=== PATIENT | female | born 1995 | race African-American/Black ===

== ENCOUNTER → 2019-02-11 | Outpatient (CLI) | payer BC | LOC: SUN.DIA 14:23 | DX: E10.9 Type 1 diabetes mellitus without complications (principal); O24.419 Gestational diabetes mellitus in pregnancy, unspecified control | CPT/HCPCS: G0108 ==

== ENCOUNTER → 2019-02-16 | Outpatient (CLI) | payer BC | LOC: SUN.DIA 08:44 | DX: O24.419 Gestational diabetes mellitus in pregnancy, unspecified control (principal); Z79.4 Long term (current) use of insulin; Z3A.14 14 weeks gestation of pregnancy | CPT/HCPCS: G0108 ==

== ENCOUNTER → 2019-03-01 | Outpatient (CLI) | payer BC | LOC: SUN.DIA 13:28 | DX: E10.9 Type 1 diabetes mellitus without complications (principal); O24.419 Gestational diabetes mellitus in pregnancy, unspecified control; Z79.4 Long term (current) use of insulin; Z3A.17 17 weeks gestation of pregnancy | CPT/HCPCS: G0108 ==

== ENCOUNTER → 2019-03-17 | Outpatient (CLI) | payer BC | LOC: SUN.DIA 08:45 | DX: E10.9 Type 1 diabetes mellitus without complications (principal); O24.419 Gestational diabetes mellitus in pregnancy, unspecified control; Z79.4 Long term (current) use of insulin | CPT/HCPCS: G0108 ==

== ENCOUNTER → 2019-04-19 | Outpatient (CLI) | payer BC | LOC: SUN.DIA 04-13 15:00 | DX: E10.9 Type 1 diabetes mellitus without complications (principal); O24.419 Gestational diabetes mellitus in pregnancy, unspecified control | CPT/HCPCS: G0108 ==

== ENCOUNTER → 2019-05-02 | Outpatient (CLI) | payer BC | LOC: SUN.DIA 09:05 | DX: E10.9 Type 1 diabetes mellitus without complications (principal) | CPT/HCPCS: G0108 ==

== ENCOUNTER → 2019-05-30 | Outpatient (CLI) | payer BC | LOC: DIA.ED 05-23 14:52 → SUN.DIA 05-23 14:53 → DIA.ED 09:30 | DX: E10.9 Type 1 diabetes mellitus without complications (principal); Z79.4 Long term (current) use of insulin | CPT/HCPCS: G0108 ==

== ENCOUNTER → 2019-06-15 | Outpatient (CLI) | payer BC | LOC: DIA.ED 10:54 | DX: E10.9 Type 1 diabetes mellitus without complications (principal); Z79.4 Long term (current) use of insulin | CPT/HCPCS: G0108 ==

== ENCOUNTER → 2019-07-05 | Outpatient (CLI) | payer BC | LOC: DIA.ED 13:21 | DX: E10.9 Type 1 diabetes mellitus without complications (principal); Z79.4 Long term (current) use of insulin | CPT/HCPCS: G0108 ==

== ENCOUNTER 2019-07-28 06:51 | Inpatient (IN) | payer BC ==
[~2019-07-28] VITALS: Ht 172.7 cm; Wt 105.0 kg
[2019-07-28] VITALS (54 sets, daily range): BP systolic 113–190; BP diastolic 63–116; PULSE 61–114; TEMP 97.6–98.6
--- NOTE | 2019-07-28 07:00 | NUR ---
Patient arrives ambulatory with spouse for scheduled induction of labor. Patient denies contractions, ROM or vaginal bleeding, and reports normal movement. Patient is a 37 week gestation induction for Type 1 DM and PIH. Patient recieved Betamethasone injections this past and Thursday for upcoming induction. Patient changes into gown, EFM explained and placed. VS obtained. Initial BP elevated, will recheck. Patient states she is anxious about induction. Induction process reviewed and plan of care discussed. Patient denies questions and agrees. Dr. Reeder called regarding DM management. Orders for moderate sliding scale and Q1hr BG checks. Infuse NS instead of LR per protocol. 0715- IV started in RH, labs obtained. NS infusing per protocol. Consents explained and signed. Denies questions. 0730- Patient repostioned LL. BG checked, 187. Sliding scale orders for 2 units Novalog. 0800- Reactive FHR strip obtained. Pitocin infusion reviewed and Pitocin started at 2 mU per protocol and order. Novolog given per order.
[2019-07-28] MEDS ORDERED: TRANDATE 100MG100 MG PO ×2 (07:45→07:46)
[2019-07-28 07:46] LABS: BASO % 0.1 % (0.0-2.0); EOS # 0.1 (0.0-0.7); EOS % 0.9 % (0-4.0); GRAN # 4.8 (1.4-6.5); GRAN % 63.2 % (42.2-75.2); HEMATOCRIT 35.7 % (37.0-47.0); HEMOGLOBIN 11.9 g/dl (12.5-16.0); LYMPH # 2.3 (1.2-3.4); LYMPH % 30.2 % (20.0-51.0); MEAN CELL VOLUME 80 fl (80.0-100.0); MEAN CORPUSCULAR HEMOGLOBIN 27 pg (27.0-31.0); MEAN CORPUSCULAR HGB CONC 33 g/dl (33.0-37.0); MEAN PLATELET VOLUME 11.6 fl (7.4-10.4); MONO # 0.4 (0.1-0.6); MONO % 5.1 % (1.7-9.3); PLATELET COUNT 212 K/mm3 (130-400); RED BLOOD COUNT 4.47 M/mm3 (4.10-5.30); REDCELL DISTRIBUTION WIDTH-CV 15.6 % (11.5-14.5)
[2019-07-28] MEDS ORDERED: NOVOLOG 100U100 U/M1 SQ (07:46)
[2019-07-28] MEDS ORDERED: LANTUS100 U/ML SQ (07:47)
[2019-07-28] MEDS ORDERED: PRENATAL (07:47)
[2019-07-28 08:00] LABS: ALBUMIN 3.1 gm/dL (3.5-5.0); BILIRUBIN,TOTAL 0.3 mg/dL (0.0-1.0); CALCIUM 8.7 mg/dL (8.4-10.2); CREATININE, serum 0.46 (0.52-1.25); POTASSIUM 4.1 mmol/L (3.4-5.0); TOTAL PROTEIN 6.1 gm/dL (6.4-8.2)
--- NOTE | 2019-07-28 08:30 | NUR ---
Dr. Reeder at bedside, reviews FHR strip. Discussing plan for AROM, patient agrees. Attemped SVE by physician, patient does not tolerate exam. Unable to perform AROM. Plan of care to recieve epidural. Ashly Reyes SAND BUFFER notified. NS bolus infusing.
--- NOTE | 2019-07-28 09:10 | NUR ---
Patient assisted to sit on edge of bed for epidural placement. Difficulty tracing FHR due to maternal position. See epidural documentation.
--- NOTE | 2019-07-28 09:40 | NUR ---
Dr. Reeder at bedside. Patient comfortable with epidural. 0944- SVE per provider /3, AROM by Dr. Reeder for small amount of clear fluid. Pericare given. Discussed continued elevated BPs with physician. Patient denies PIH symptoms. Orders to monitor BPs and if two elevated >160 from this point on treat with 20 mg Labetolol. Orders to continue Pitocin induction.
--- NOTE | 2019-07-28 11:10 | NUR ---
RN at bedside adjusting toco and palpating abdomen. Contractions noted every 2-6 minutes with good resting tone in between.
--- NOTE | 2019-07-28 11:55 | NUR ---
Dr. Reeder at bedside. Reviews FHR strip and updated on blood pressures. Orders for 20 mg IV Labetolol at 1210. See EMAR.
--- NOTE | 2019-07-28 12:40 | NUR ---
Dr. Reeder at bedside, reviews FHR strip and blood pressures. Discussing IUPC with patient, patient agrees. 1245- IUPC placed by physician. Orders to continue increasing Pitocin.
--- NOTE | 2019-07-28 13:24 | NUR ---
Physician on unit, reviews FHR strip and contraction pattern. Orders to continue increasing Pitocin to 30 mU.
--- NOTE | 2019-07-28 14:00 | NUR ---
[id number]: [facility] [place] [address]
--- NOTE | 2019-07-28 15:55 | NUR ---
Dr. Reeder at bedside. Reviews FHR strip and blood pressures. SVE per provider unchanged. Discussing plan of care. 1600- Decision for section. Pitocin discontinued. Ashly Reyes MERCHANDISE ADJUSTMENT CLERK notified and patient prepped for surgery. 1610- Patient off EFM to OR. See intraoperative report.
--- NOTE | 2019-07-28 17:10 | NUR ---
Patient to PACU via bed. Report from Ashly Reyes CRNA. BP noted hypertensive. Dr. Reeder notified, 10 mg Hydralazine given IV via Landy. Amy ORDER PICKER. Orders to give another 10 mg IV if remains elevated after 10 minutes. 1720- Dr. Reeder at bedside. Reviews BP. Orders to give second dose of Hydralazine if indicated and then give 40 mg IV Labetolol 10 minutes after that if still elevated. Give 2100 PO dose of Labetolol 100 mg. Start blood glucose monitoring with start of recovery. Monitor Q1hr x2, then Q4 hrs. Use moderate sliding scale that physician ordered. ADA diet ordered. 1730- Ashly reyes CRNA at bedside, reviewed blood pressures.
[2019-07-28] MEDS ORDERED: MOTRIN 800800 MG/TAB PO (17:19)
[2019-07-28] MEDS ORDERED: PERCOCET 325 MG1 TA2 PO (17:19)
[2019-07-29 04:11] VITALS: BP 140/72; PULSE 98; TEMP 98.2
[2019-07-29 06:57] LABS: BASO % 0.2 % (0.0-2.0); EOS # 0.1 (0.0-0.7); EOS % 0.4 % (0-4.0); GRAN # 8.7 (1.4-6.5); GRAN % 74.8 % (42.2-75.2); LYMPH % 17.4 % (20.0-51.0); MEAN CELL VOLUME 80 fl (80.0-100.0); MEAN CORPUSCULAR HEMOGLOBIN 27 pg (27.0-31.0); MEAN CORPUSCULAR HGB CONC 33 g/dl (33.0-37.0); MEAN PLATELET VOLUME 11.3 fl (7.4-10.4); MONO # 0.8 (0.1-0.6); MONO % 6.6 % (1.7-9.3); PLATELET COUNT 172 K/mm3 (130-400); RED BLOOD COUNT 4.15 M/mm3 (4.10-5.30); REDCELL DISTRIBUTION WIDTH-CV 15.9 % (11.5-14.5)
[2019-07-29 06:58] LABS: HEMATOCRIT 33.3 % (37.0-47.0)
[2019-07-29 07:10] LABS: ALBUMIN 2.7 gm/dL (3.5-5.0); BILIRUBIN,TOTAL 0.3 mg/dL (0.0-1.0); CALCIUM 8.4 mg/dL (8.4-10.2); CREATININE, serum 0.56 (0.52-1.25); POTASSIUM 4.2 mmol/L (3.4-5.0); TOTAL PROTEIN 5.5 gm/dL (6.4-8.2)
[2019-07-29 07:28] VITALS: BP 132/80; PULSE 86; TEMP 98
[2019-07-29 13:15] VITALS: BP 140/88; PULSE 92
[2019-07-29 17:03] VITALS: BP 149/91; PULSE 105; TEMP 98.1
[2019-07-29 20:00] VITALS: BP 168/98; PULSE 111; TEMP 97.6
[2019-07-29 21:00] VITALS: BP 155/97
[2019-07-30 02:00] VITALS: BP 152/92; PULSE 101
[2019-07-30 07:30] VITALS: BP 149/93; PULSE 93; TEMP 98
[2019-07-30 09:20] VITALS: BP 156/83; PULSE 89
[2019-07-30 12:29] VITALS: BP 147/99; PULSE 109; TEMP 97.7
[2019-07-30 15:30] VITALS: BP 152/95; PULSE 101; TEMP 98.7
[2019-07-30 21:00] VITALS: BP 158/100; PULSE 90; TEMP 98.4
[2019-07-31] VITALS: BP 133/71; PULSE 84; TEMP 98.4
[2019-07-31 07:00] VITALS: BP 141/91; PULSE 92; TEMP 97.4
[2019-07-31] MEDS ORDERED: TRANDATE 200MG200 MG PO (09:07)
[2019-07-31] MEDS ORDERED: LEVEMIR FLEX100 U/ML SQ (09:08)
[2019-07-31] MEDS ORDERED: NOVOLOG 100U100 U/M1 SQ (09:09)
[2019-07-31 11:30] VITALS: BP 163/88
[2019-07-31 12:00] VITALS: BP 141/74
[2019-07-31 14:41] VITALS: BP 141/80; PULSE 94; TEMP 98
== END 2019-07-31 15:50 | disposition home or self-care (01) | DRG 786 ==
LOC: LDR 06:51 → OB 09:27
PROVIDERS: ADMIT Obstetrics & Gynecology
PROC: 10D00Z1 Extraction of Products of Conception, Low, Open Approach (ICD-10-PCS; principal; 2019-07-28)
PROC: 3E033VJ Introduction of Other Hormone into Peripheral Vein, Percutaneous Approach (ICD-10-PCS; 2019-07-28)
PROC: 10907ZC Drainage of Amniotic Fluid, Therapeutic from Products of Conception, Via Natural or Artificial Opening (ICD-10-PCS; 2019-07-28)
DX: O14.93 Unspecified pre-eclampsia, third trimester (principal); O24.02 Pre-existing type 1 diabetes mellitus, in childbirth; E10.9 Type 1 diabetes mellitus without complications; Z3A.37 37 weeks gestation of pregnancy; Z37.0 Single live birth; O62.1 Secondary uterine inertia; O69.81X0 Labor and delivery complicated by cord around neck, without compression, not applicable or unspecified; O36.63X0 Maternal care for excessive fetal growth, third trimester, not applicable or unspecified; Z79.4 Long term (current) use of insulin; O99.214 Obesity complicating childbirth; E66.9 Obesity, unspecified; O99.02 Anemia complicating childbirth; D64.9 Anemia, unspecified
CPT/HCPCS: J0360; J0690; J1200; J1815; J1885; J2270; J2405; J2590; J3010; J7030

== ENCOUNTER → 2019-08-10 | Outpatient (CLI) | payer BC ==
[~2019-08-10] MED LIST: LANTUS100 U/ML SQ; LEVEMIR FLEX100 U/ML SQ; MOTRIN 800800 MG/TAB PO; NOVOLOG 100U100 U/M1 SQ; PERCOCET 325 MG1 TA2 PO; PRENATAL; TRANDATE 100MG100 MG PO; TRANDATE 200MG200 MG PO
--- NOTE | 2019-08-10 14:32 | NUR ---
Pt, Nelsy Kingsley, presents for an outpatient consult with 2 week old baby boy Octavio Oconnell" Sancho MELISSA and her spouse, Octavio Kingsley. Chief complaint: unable to latch Crsi to breastfeed. HX: : 07/28/19; Primary C/section; G1 L1; BW 8#7.8oz (3850 gms). Infant has refused latching and essentially since discharge from the hospital on 07/31/19. Pt states Cris was seen by Dr. Ilana Lux on 08/03/19 and he weighed 8#. Today's weight is 8#9.1oz (3888 gms). Because of refusal to latch Cris has been getting expressed breastmilk by bottle. Currently he drinks 3-4oz per feeding, 7 times daily. Pt expresses a minimum of 5oz at least 6 times daily. After weight obtained, this LC coaches/assists pt to get Cris latched. Cris is stiff, arching, yet rooting. He does not open his mouth widely. Once attached, he has a lot of stridor with his respitory effort while trying to feed. Use off accessory muscles to coordinate his breathing as he tries to breastfeed noted. Cris remains at the breast for about 6 minutes but has no weight gain per post feed weight. LC assists, gets the latch deeper but Cris continues to struggle with stridor, tachypnea, slight nasal flaring and general distress while feeding; he does not remain latched. Cris is bottle fed; he has less stridor and FOB is instructed how to help the feeding by pacing and keeping Jennifertethomas more vertical. He does drink 3oz EBM from the bottle with some effort to help him manage milk flow and breathing effort. After burping and giving him about 5 minutes Cris relaxes, his respitory effort is WNL. POC: Continue pump and bottle feed. Weight gain indicates he has been eating adequately with the bottle feeding, no changes recommended. F/U: Advised to follow up with Dr. Ilana Lux regarding the stridor and respitory distress observed during this feeding. Pt verbalizes understanding, questions invited and answered.
== END ==
LOC: OLC 13:16
DX: Z39.1 Encounter for care and examination of lactating mother (principal); Z71.89 Other specified counseling